=== PATIENT | male | born 1950 | race Caucasian/White ===

== ENCOUNTER 2022-02-07 13:35 | Emergency (ER) | payer MEDICARE, OTHER ==
[~2022-02-07] VITALS: Ht 170.2 cm; Wt 117.9 kg
[2022-02-07 13:37] VITALS: BP_SYST 152
[2022-02-07 15:34] LABS: BASOPHILS % (AUTO) 0.6 % (0.0-2.0); EOSINOPHILS # (AUTO) 0.4 K/uL (0.0-0.4); EOSINOPHILS % (AUTO) 4.9 % (0.0-4.0); HEMATOCRIT 41.2 % (36-54); LYMPHOCYTES # (AUTO) 1.5 K/uL (1.0-5.5); LYMPHOCYTES % (AUTO) 20.6 % (20.5-51.5); MEAN CORPUSCULAR HEMOGLOBIN 33 pg (27-31); MEAN CORPUSCULAR HGB CONC 34 % (32-36); MEAN CORPUSCULAR VOLUME 96 fL (79.0-98.0); MONOCYTES # (AUTO) 0.5 K/uL (0.0-1.0); MONOCYTES % (AUTO) 7.3 % (1.7-9.3); NEUTROPHILS # (AUTO) 4.8 K/uL (1.8-7.7); NEUTROPHILS % (AUTO) 66.6 % (40.0-70.0); PLATELET COUNT (AUTO) 196 K/uL (130-430); RED BLOOD CELL COUNT(AUTO) 4.29 MIL/uL (4.2-6.2); RED CELL DISTRIBUTION WIDTH 13.1 % (9.0-15.0); WHITE BLOOD COUNT (AUTO) 7.2 K/uL (4.8-10.8)
[2022-02-07] MEDS ORDERED: LIP80 PO (15:38)
[2022-02-07] MEDS ORDERED: CALC-823 PO (15:38)
[2022-02-07] MEDS ORDERED: DOCU283E7 (15:38)
[2022-02-07] MEDS ORDERED: VITD2000 PO (15:38)
[2022-02-07] MEDS ORDERED: CARB200T2 PO (15:38)
[2022-02-07] MEDS ORDERED: ASCO500T20 PO (15:38)
[2022-02-07] MEDS ORDERED: BACL20TA PO (15:38)
[2022-02-07] MEDS ORDERED: IPRA3AMP9 INH (15:38)
[2022-02-07] MEDS ORDERED: OXYB10TA4 PO (15:51)
[2022-02-07] MEDS ORDERED: GUAI-997 PO (15:51)
[2022-02-07] MEDS ORDERED: LOSA25TA3 PO (15:51)
[2022-02-07] MEDS ORDERED: NEU300 PO (15:51)
[2022-02-07] MEDS ORDERED: LORA10TA7 PO (15:51)
[2022-02-07] MEDS ORDERED: LEVO100V IV (15:51)
[2022-02-07] MEDS ORDERED: SYN75 PO (15:51)
[2022-02-07] MEDS ORDERED: MELA1TAB29 PO (15:51)
[2022-02-07] MEDS ORDERED: METO25TA3 PO (15:51)
[2022-02-07] MEDS ORDERED: METH1TAB35 PO (15:51)
[2022-02-07] MEDS ORDERED: FLUT16SP16 NS (15:51)
[2022-02-07] MEDS ORDERED: METF-381 PO (15:51)
[2022-02-07] MEDS ORDERED: NITR0.4T47 SL (15:51)
[2022-02-07 16:06] LABS: ANION GAP 4 (5-15); CALCIUM 8.3 mg/dL (8.4-11.0); CHLORIDE 103 mmol/L (98-107); CREATININE 0.74 mg/dL (0.55-1.30); GLUCOSE 135 mg/dL (70-99); POTASSIUM 3.8 mmol/L (3.5-5.1); SODIUM SERUM 138 mmol/L (136-145); UREA NITROGEN, BLOOD 12 mg/dL (8-21)
[2022-02-07 16:12] LABS: ALANINE AMINOTRANSFERASE 15 U/L (12-78); ALBUMIN 3.1 g/dL (3.4-4.8); ASPARTATE AMINOTRANSFERASE 16 U/L (10-37); LIPASE 64 U/L (73-393)
[2022-02-07 16:21] LABS: BILIRUBIN,URINE NEGATIVE (NEGATIVE); BLOOD, URINE NEGATIVE (NEGATIVE); COLOR,URINE YELLOW (YELLOW); GLUCOSE,URINE NEGATIVE (NEGATIVE); KETONES,URINE NEGATIVE (NEGATIVE); LEUKOCYTE ESTERASE ,URINE 1+ (NEGATIVE); NITRITE, URINE POSITIVE (NEGATIVE); PH,URINE 5.5 (5.0-8.0); PROTEIN URINE NEGATIVE (NEGATIVE); UROBILINOGEN,URINE 0.2 (0.2-1.0)
[2022-02-07 16:45] LABS: TOTAL BILIRUBIN 0.1 mg/dL (0.0-1.0)
[2022-02-07 16:59] LABS: CLARITY/URINE SLIGHTLY HAZY (CLEAR)
[2022-02-07 17:12] LABS: BACTERIA,URINE MODERATE /HPF (None Seen); MUCUS,URINE 1+ /LPF (None Seen); RBC,URINE 0-3 /HPF (0-3)
[2022-02-07] MEDS ORDERED: cefTRIAXone 1 GM in D5W 50 ML IV ONE (17:15)
[2022-02-07] MEDS ORDERED: NACL 0.9% 1,000 ML IV ONE (17:30)
[2022-02-07] MEDS ORDERED: cefTRIAXone 1 GM VIAL ONE (17:37)
[2022-02-07 19:04] LABS: INR 1.1 (0.80-1.20); PROTHROMBIN TIME 10.7 SECS (9.5-12.5)
[2022-02-07 22:45] VITALS: BP_SYST 146
== END 2022-02-07 22:44 | disposition short-term general hospital (02) ==
LOC: SED 13:35
DX: N39.0 Urinary tract infection, site not specified (principal); R53.1 Weakness; Z88.2 Allergy status to sulfonamides; Z20.822 Contact with and (suspected) exposure to COVID-19
CPT/HCPCS: 36415; 70450; 71045; 76376; 80053; 81000; 83605; 83690; 84484; 85025; 85610; 85730; 87040; 87086; 87426; 93005; 96365; 99285; J0696; J7060

== ENCOUNTER 2024-01-25 18:42 | Inpatient (IN) | payer MEDICARE, OTHER ==
[~2024-01-25] VITALS: Ht 185.4 cm; Wt 90.3 kg
[2024-01-25 18:42] VITALS: BP_SYST 126; PULSE 76; RESP 12; TEMP 96; O2SAT 91
[~2024-01-25 18:42] MED LIST: ASCO500T20 PO; BACL20TA PO; CALC-823 PO; CARB200T2 PO; DOCU283E7; FLUT16SP16 NS; IPRA3AMP9 INH; LEVO100V IV; LIP80 PO; LORA10TA7 PO; LOSA-412 PO; MELA1TAB29 PO; METF-381 PO; METH1TAB35 PO; METO25TA3 PO; NEU300 PO; NITR0.4T47 SL; OXYB10TA4 PO; SYN75 PO; VITD2000 PO; [UNRECOGNIZED DRUG - CODE] PO
[2024-01-25] MEDS ORDERED: ETOMIDATE 20 MG/ 10 ML VIAL (AMIDATE) ONE (18:59)
[2024-01-25] MEDS ORDERED: EPINEPHrine JECT 0.1 MG/ML SYR ONE (19:00)
[2024-01-25 19:47] LABS: HEMATOCRIT 49.2 % (36-54); HEMOGLOBIN 16.3 g/dL (14.0-18.0); MEAN CORPUSCULAR HEMOGLOBIN 33 pg (27-31); MEAN CORPUSCULAR HGB CONC 33 % (32-36); MEAN CORPUSCULAR VOLUME 98 fL (79.0-98.0); RED BLOOD CELL COUNT(AUTO) 5.01 MIL/uL (4.2-6.2); RED CELL DISTRIBUTION WIDTH 13.3 % (9.0-15.0); WHITE BLOOD COUNT (AUTO) 20.1 K/uL (4.8-10.8)
[2024-01-25 20:00] LABS: PLATELET COUNT (AUTO) 389 K/uL (130-430)
[2024-01-25 20:01] LABS: PROTHROMBIN TIME 10.5 SECS (9.5-12.5)
[2024-01-25 20:02] LABS: BAND % (MANUAL) 33 % (0-6); BASOPHILS % (MANUAL) 0 % (0-2); EOSINOPHILS % (MANUAL) 0 % (0-7); LYMPHOCYTES % (MANUAL) 5 % (20-46); MONOCYTES % (MANUAL) 3 % (0-11); PLATELET ESTIMATE ADEQUATE (ADEQUATE)
[2024-01-25 20:04] LABS: ALANINE AMINOTRANSFERASE 13 U/L (12-78); ALBUMIN 2.9 g/dL (3.4-4.8); ANION GAP 20 (5-15); ASPARTATE AMINOTRANSFERASE 17 U/L (10-37); BILIRUBIN,DIRECT 0.2 mg/dL (0.0-0.3); CALCIUM 9.5 mg/dL (8.4-11.0); CARBON DIOXIDE 16 mmol/L (23-29); CHLORIDE 103 mmol/L (98-107); CREATININE 1.72 mg/dL (0.55-1.30); GLUCOSE 235 mg/dL (74-106); POTASSIUM 4.6 mmol/L (3.5-5.1); SODIUM SERUM 139 mmol/L (136-145); TOTAL BILIRUBIN 0.5 mg/dL (0.0-1.0); TOTAL PROTEIN, SERUM 7.1 g/dL (6.4-8.3); UREA NITROGEN, BLOOD 17 mg/dL (8-21)
[2024-01-25] MEDS ORDERED: VANCOMYCIN HCL 1000 MG/VIAL IV ONE (20:11)
[2024-01-25] MEDS: ONDANSETRON HCL 4 MG/2 ML VIAL IVP ONE (20:14)
[2024-01-25] MEDS: metroNIDAZOLE 500 mg/NS 100 ML IV ONE (20:15)
[2024-01-25] MEDS: NACL 0.9% 2,000 ML IV ONE (20:15)
[2024-01-25] MEDS: VANCOMYCIN HCL 1,000 MG in NS 250 ML IV ONE (20:16)
[2024-01-25 20:30] LABS: BLOOD GAS BASE EXCESS -10.9 mmol/L (-3.0-3.0); BLOOD GAS HCO3 16.2 mmol/L (21.0-27.0); BLOOD GAS PCO2 40.4 mmHg (32.0-45.0); BLOOD GAS PH 7.221 (7.350-7.450); BLOOD GAS PO2 127.6 mmHg (75.0-100.0)
[2024-01-25] MEDS: SODIUM BICARBONATE 8.4% JECT 50 MEQ/50 ML SYRINGE IVP ONE (20:33)
[2024-01-25] MEDS: NACL 0.9% 1,000 ML IV ONE ×2 (21:08→22:14)
[2024-01-25] MEDS ORDERED: NYST15PO (21:55)
[2024-01-25] MEDS ORDERED: METF-379 PO (21:55)
[2024-01-25] MEDS ORDERED: GABA-529 PO (21:55)
[2024-01-25] MEDS: DIPHENHYDRAMINE INJ 50 MG/ML VIAL IVP ONE (22:10)
[2024-01-25] MEDS: cefTRIAXone 1 GM IVPB PREMIX 50 ML IV ONE (22:13)
[2024-01-25] MEDS ORDERED: DEXTROSE 50% JECT 50 ML DISP.SYRIN IVP PRN (22:15)
[2024-01-25 22:47] VITALS: BP_SYST 134; PULSE 69; RESP 16; TEMP 97.5; O2SAT 95
[2024-01-25 22:54] LABS: BILIRUBIN,URINE 3+ (NEGATIVE); BLOOD, URINE 3+ (NEGATIVE); CLARITY/URINE SL CLOUDY (CLEAR); GLUCOSE,URINE TRACE (NEGATIVE); KETONES,URINE 1+ (NEGATIVE); LEUKOCYTE ESTERASE ,URINE 1+ (NEGATIVE); NITRITE, URINE POSITIVE (NEGATIVE); PROTEIN URINE 3+ (NEGATIVE)
[2024-01-25 23:00] VITALS: PULSE 64
[2024-01-25 23:06] LABS: INFLUENZA TYPE A Negative (NEGATIVE); INFLUENZA TYPE B NEGATIVE (NEGATIVE)
[2024-01-25 23:07] LABS: BACTERIA,URINE RARE /HPF (None Seen)
[2024-01-25 23:08] LABS: HYALINE CASTS, URINE 0-10 /LPF (None Seen); MUCUS,URINE 1+ /LPF (None Seen)
[2024-01-25 23:14] VITALS: BP_SYST 134; PULSE 69; RESP 16; TEMP 97.5; O2SAT 96
[2024-01-25] MEDS: NOREPINEPHRINE 4 MG/4 ML VIAL IV ONE (23:36)
[2024-01-25] MEDS: NOREPINEPHRINE BITARTRATE 4 MG in D5W 246 ML IV PRN (23:48)
[2024-01-26] VITALS (76 sets, daily range): BP systolic 62–234; PULSE 57–112; RESP 16–27; TEMP 97.9–103.4; O2SAT 91–100
[2024-01-26] MEDS ORDERED: IPRATROPIUM/ALBUTEROL SULFATE 3 ML AMPUL.NEB (DUONEB) INH PRN
[2024-01-26] MEDS: SODIUM BICARBONATE 8.4% JECT 50 MEQ/50 ML SYRINGE IVP ONE (01:24)
[2024-01-26] MEDS: DOXYCYCLINE HYCLATE 100 MG in D5W 100 ML IV SCH (01:53)
[2024-01-26] MEDS: DOXYCYCLINE HYCLATE 100 MG VIAL IV ONE (01:54)
[2024-01-26] MEDS: NACL 0.9% 1,000 ML IV SCH (03:46)
[2024-01-26] MEDS: NOREPINEPHRINE BITARTRATE 8 MG in D5W 246 ML IV PRN (03:47)
[2024-01-26] MEDS: NOREPINEPHRINE 4 MG/4 ML VIAL IV ONE (03:48)
[2024-01-26 05:00] LABS: BASOPHILS % (AUTO) 0.1 % (0.0-2.0); HEMATOCRIT 49.4 % (36-54); HEMOGLOBIN 16.3 g/dL (14.0-18.0); LYMPHOCYTES # (AUTO) 1.4 K/uL (1.0-5.5); LYMPHOCYTES % (AUTO) 9.1 % (20.5-51.5); MEAN CORPUSCULAR HEMOGLOBIN 33 pg (27-31); MEAN CORPUSCULAR HGB CONC 33 % (32-36); MEAN CORPUSCULAR VOLUME 100 fL (79.0-98.0); MONOCYTES # (AUTO) 1.2 K/uL (0.0-1.0); MONOCYTES % (AUTO) 7.9 % (1.7-9.3); NEUTROPHILS # (AUTO) 12.8 K/uL (1.8-7.7); NEUTROPHILS % (AUTO) 82.9 % (40.0-70.0); PLATELET COUNT (AUTO) 315 K/uL (130-430); RED BLOOD CELL COUNT(AUTO) 4.93 MIL/uL (4.2-6.2); RED CELL DISTRIBUTION WIDTH 13.6 % (9.0-15.0); WHITE BLOOD COUNT (AUTO) 15.5 K/uL (4.8-10.8)
[2024-01-26 05:25] LABS: ALANINE AMINOTRANSFERASE 22 U/L (12-78); ALBUMIN 2.4 g/dL (3.4-4.8); ANION GAP 19 (5-15); ASPARTATE AMINOTRANSFERASE 84 U/L (10-37); CALCIUM 8.8 mg/dL (8.4-11.0); CARBON DIOXIDE 20 mmol/L (23-29); CHLORIDE 104 mmol/L (98-107); CREATININE 1.74 mg/dL (0.55-1.30); GLUCOSE 217 mg/dL (74-106); PHOSPHORUS 5.7 mg/dL (2.7-4.5); POTASSIUM 4.4 mmol/L (3.5-5.1); SODIUM SERUM 143 mmol/L (136-145); TOTAL BILIRUBIN 0.4 mg/dL (0.0-1.0); TOTAL PROTEIN, SERUM 6.5 g/dL (6.4-8.3); UREA NITROGEN, BLOOD 19 mg/dL (8-21)
[2024-01-26 06:33] LABS: BLOOD GAS PCO2 32.4 mmHg (32.0-45.0); BLOOD GAS PH 7.341 (7.350-7.450)
[2024-01-26 06:34] LABS: BLOOD GAS HCO3 17.1 mmol/L (21.0-27.0); BLOOD GAS PO2 138.5 mmHg (75.0-100.0)
[2024-01-26 06:35] LABS: ABG O2 SAT% ESTIMATE 98.6 % (94.0-100.0); BLOOD GAS BASE EXCESS -7.4 mmol/L (-3.0-3.0)
[2024-01-26] MEDS: metroNIDAZOLE 500 mg/NS 100 ML IV SCH (07:52)
[2024-01-26] MEDS: LEVOTHYROXINE SODIUM 0.075 MG TABLET PO SCH (07:58)
[2024-01-26] MEDS: ALBUMIN HUMAN 25% 50 ML IV SCH (07:58)
[2024-01-26] MEDS ORDERED: PHENYLEPHRINE HCL 100 MG in NS 240 ML IV PRN (08:15)
[2024-01-26] MEDS: INSULIN REGULAR, HUMAN 100 UNITS/ML, 3 ML VIAL (humuLIN R) SUBCUT PRN (08:33)
[2024-01-26] MEDS: NOREPINEPHRINE BITARTRATE 8 MG in D5W 242 ML IV PRN (08:38)
[2024-01-26] MEDS: ASCORBIC ACID 500 MG TABLET PO SCH (08:46)
[2024-01-26] MEDS: ATORVASTATIN 20 MG TABLET PO SCH (08:46)
[2024-01-26] MEDS: CHOLECALCIFEROL (VITAMIN D3) 2,000 UNIT TABLET PO SCH (08:47)
[2024-01-26] MEDS: MEROPENEM 500 MG in NS 50 ML IV ONE (11:07)
[2024-01-26] MEDS: VANCOMYCIN HCL ORAL SOLUTION 250 MG/5 ML, 80 ML PO SCH (11:08)
[2024-01-26] MEDS: ENOXAPARIN SODIUM 40 MG/0.4 ML SYRINGE SUBCUT SCH (11:15)
[2024-01-26] MEDS: ENOXAPARIN SODIUM 40 MG/0.4 ML SYRINGE SUBCUT ONE (11:32)
[2024-01-26] MEDS ORDERED: NOREPINEPHRINE BITARTRATE 32 MG in D5W 242 ML IV PRN (11:45)
[2024-01-26] MEDS: HYDROCORTISONE SOD SUCC 100 MG/2 ML VIAL IVP SCH ×2 (13:19→21:07)
[2024-01-26] MEDS: NOREPINEPHRINE BITARTRATE 32 MG in D5W 218 ML IV PRN (13:25)
[2024-01-26] MEDS ORDERED: *HEPARIN PER PHARMACY XX PRN (16:00)
[2024-01-26] MEDS: ACETAMINOPHEN 650 MG/20.3 ML UDC ONE (16:18)
[2024-01-26] MEDS ORDERED: ALBUMIN HUMAN 25% 200 ML IV ONE (16:30)
[2024-01-26] MEDS ORDERED: HEPARIN SODIUM,PORCINE 2000 UNITS/0.4 ML BOLUS IVP PRN (17:00)
[2024-01-26] MEDS ORDERED: HEPARIN SODIUM,PORCINE 3000 UNITS/0.6 ML BOLUS IVP PRN (17:00)
[2024-01-26] MEDS: HEPARIN SODIUM,PORCINE 5,000 UNITS/ML VIAL IV ONE (17:53)
[2024-01-26] MEDS: HEPARIN 25,000 UNITS in 250 ML PREMIX IV PRN (17:56)
[2024-01-26] MEDS: HYDROCORTISONE SOD SUCC 100 MG/2 ML VIAL IVP ONE (17:57)
[2024-01-26 19:01] LABS: ANION GAP 13 (5-15); CARBON DIOXIDE 19 mmol/L (23-29); CHLORIDE 105 mmol/L (98-107); CREATININE 2.58 mg/dL (0.55-1.30); GLUCOSE 286 mg/dL (74-106); POTASSIUM 3.8 mmol/L (3.5-5.1); SODIUM SERUM 137 mmol/L (136-145); UREA NITROGEN, BLOOD 31 mg/dL (8-21)
[2024-01-26] MEDS: MEROPENEM 500 MG in NS 50 ML IV SCH (20:39)
[2024-01-27] VITALS (37 sets, daily range): BP systolic 105–158; PULSE 71–99; RESP 13–23; TEMP 98.6–102.5; O2SAT 95–99
[2024-01-27] MEDS: ACETAMINOPHEN 650 MG/20.3 ML UDC PO PRN (04:45)
[2024-01-27 06:06] LABS: BASOPHILS # (AUTO) 0.1 K/uL (0.0-0.2); BASOPHILS % (AUTO) 0.3 % (0.0-2.0); EOSINOPHILS % (AUTO) 0.1 % (0.0-4.0); HEMATOCRIT 36.8 % (36-54); HEMOGLOBIN 12.5 g/dL (14.0-18.0); LYMPHOCYTES # (AUTO) 1.7 K/uL (1.0-5.5); LYMPHOCYTES % (AUTO) 8.2 % (20.5-51.5); MEAN CORPUSCULAR HEMOGLOBIN 33 pg (27-31); MEAN CORPUSCULAR HGB CONC 34 % (32-36); MEAN CORPUSCULAR VOLUME 98 fL (79.0-98.0); MONOCYTES # (AUTO) 1.7 K/uL (0.0-1.0); NEUTROPHILS # (AUTO) 17.3 K/uL (1.8-7.7); NEUTROPHILS % (AUTO) 83.4 % (40.0-70.0); PLATELET COUNT (AUTO) 221 K/uL (130-430); RED BLOOD CELL COUNT(AUTO) 3.75 MIL/uL (4.2-6.2); RED CELL DISTRIBUTION WIDTH 13.5 % (9.0-15.0)
[2024-01-27 06:49] LABS: ALANINE AMINOTRANSFERASE 22 U/L (12-78); ALBUMIN 2.2 g/dL (3.4-4.8); ANION GAP 17 (5-15); ASPARTATE AMINOTRANSFERASE 91 U/L (10-37); CALCIUM 7.2 mg/dL (8.4-11.0); CARBON DIOXIDE 19 mmol/L (23-29); CHLORIDE 107 mmol/L (98-107); CHOLESTEROL 51 mg/dL (<200); CREATININE 2.72 mg/dL (0.55-1.30); GLUCOSE 228 mg/dL (74-106); HDL CHOLESTEROL 39 mg/dL (>45); POTASSIUM 3.8 mmol/L (3.5-5.1); SODIUM SERUM 143 mmol/L (136-145); THYROID STIMULATING HORMONE 0.75 uIu/mL (0.34-4.82); TOTAL BILIRUBIN 0.4 mg/dL (0.0-1.0); TOTAL PROTEIN, SERUM 5.2 g/dL (6.4-8.3); TRIGLYCERIDES 24 mg/dL (30-150); UREA NITROGEN, BLOOD 35 mg/dL (8-21)
[2024-01-27 08:57] LABS: WHITE BLOOD COUNT (AUTO) 20.7 K/uL (4.8-10.8)
[2024-01-27 09:30] LABS: ABG O2 SAT% ESTIMATE 99.1 % (94.0-100.0); BLOOD GAS BASE EXCESS -1.6 mmol/L (-3.0-3.0); BLOOD GAS HCO3 19.2 mmol/L (21.0-27.0); BLOOD GAS PO2 140.5 mmHg (75.0-100.0)
[2024-01-27 09:57] LABS: BLOOD GAS PH 7.521 (7.350-7.450)
[2024-01-27 09:58] LABS: ALLEN'S TEST POSITIVE (P)
[2024-01-27] MEDS: *LOVENOX0.75MG/KG Q12H/PHARMACY XX ONE (14:00)
[2024-01-27] MEDS: FUROSEMIDE 20 MG/2 ML VIAL IVP ONE (16:06)
[2024-01-27] MEDS: PANTOPRAZOLE SODIUM 40 MG/VIAL (PROTONIX) IVP ONE (16:07)
[2024-01-27] MEDS: ENOXAPARIN SODIUM 80 MG/0.8 ML SYRINGE SUBCUT ONE (16:13)
[2024-01-27] MEDS: PANTOPRAZOLE SODIUM 40 MG/VIAL (PROTONIX) IVP SCH (22:16)
[2024-01-28] VITALS (27 sets, daily range): BP systolic 98–168; PULSE 73–103; RESP 18–21; TEMP 99–100.2; O2SAT 95–100
[2024-01-28 05:26] LABS: BASOPHILS # (AUTO) 0.1 K/uL (0.0-0.2); BASOPHILS % (AUTO) 0.5 % (0.0-2.0); EOSINOPHILS # (AUTO) 0.2 K/uL (0.0-0.4); EOSINOPHILS % (AUTO) 1.2 % (0.0-4.0); HEMATOCRIT 34.3 % (36-54); HEMOGLOBIN 11.8 g/dL (14.0-18.0); LYMPHOCYTES % (AUTO) 5.2 % (20.5-51.5); MEAN CORPUSCULAR HEMOGLOBIN 33 pg (27-31); MEAN CORPUSCULAR HGB CONC 34 % (32-36); MEAN CORPUSCULAR VOLUME 98 fL (79.0-98.0); MONOCYTES # (AUTO) 1.3 K/uL (0.0-1.0); MONOCYTES % (AUTO) 6.7 % (1.7-9.3); NEUTROPHILS # (AUTO) 16.7 K/uL (1.8-7.7); NEUTROPHILS % (AUTO) 86.4 % (40.0-70.0); PLATELET COUNT (AUTO) 181 K/uL (130-430); RED BLOOD CELL COUNT(AUTO) 3.52 MIL/uL (4.2-6.2); RED CELL DISTRIBUTION WIDTH 13.8 % (9.0-15.0); WHITE BLOOD COUNT (AUTO) 19.4 K/uL (4.8-10.8)
[2024-01-28 06:08] LABS: ALANINE AMINOTRANSFERASE 15 U/L (12-78); ALBUMIN 1.8 g/dL (3.4-4.8); ANION GAP 18 (5-15); ASPARTATE AMINOTRANSFERASE 70 U/L (10-37); CARBON DIOXIDE 16 mmol/L (23-29); CHLORIDE 110 mmol/L (98-107); CREATININE 4.37 mg/dL (0.55-1.30); GLUCOSE 182 mg/dL (74-106); PHOSPHORUS 3.5 mg/dL (2.7-4.5); POTASSIUM 3.2 mmol/L (3.5-5.1); SODIUM SERUM 144 mmol/L (136-145); TOTAL BILIRUBIN 0.4 mg/dL (0.0-1.0); UREA NITROGEN, BLOOD 50 mg/dL (8-21)
[2024-01-28 06:13] LABS: CALCIUM 6.7 mg/dL (8.4-11.0)
[2024-01-28] MEDS ORDERED: BALSAM PERU/CASTOR OIL 56.7 GM OINT...G. TP SCH (09:00)
[2024-01-28] MEDS: BALSAM PERU/CASTOR OIL 56.7 GM OINT...G. TP SCH (09:11)
[2024-01-28] MEDS: ALBUMIN HUMAN 25% 50 ML IV SCH (09:17)
[2024-01-28] MEDS: ENOXAPARIN SODIUM 80 MG/0.8 ML SYRINGE SUBCUT SCH (09:24)
[2024-01-28 09:37] LABS: BLOOD GAS PCO2 28.3 mmHg (32.0-45.0); BLOOD GAS PH 7.408 (7.350-7.450); BLOOD GAS PO2 155.5 mmHg (75.0-100.0)
[2024-01-28 09:50] LABS: BLOOD GAS BASE EXCESS -5.6 mmol/L (-3.0-3.0); BLOOD GAS HCO3 17.5 mmol/L (21.0-27.0)
[2024-01-28 09:51] LABS: ALLEN'S TEST POSITIVE (P)
[2024-01-28] MEDS ORDERED: FUROSEMIDE 40 MG/4 ML VIAL IVP ONE (17:00)
[2024-01-28] MEDS: FUROSEMIDE 40 MG/4 ML VIAL ONE (17:09)
[2024-01-28] MEDS: FUROSEMIDE 40 MG/4 ML VIAL IVP ONE (17:09)
[2024-01-28] MEDS: POTASSIUM CHLORIDE 20 MEQ/PKT PACKET PO ONE (17:11)
[2024-01-28] MEDS ORDERED: levETIRAcetam 500 MG in NS 100 ML IV SCH (21:00)
[2024-01-29] MEDS ORDERED: FUROSEMIDE 40 MG/4 ML VIAL IVP SCH (09:00)
[2024-01-29] MEDS ORDERED: POTASSIUM CHLORIDE 20 MEQ/PKT PACKET PO SCH (09:00)
== END 2024-01-28 19:32 | disposition short-term general hospital (02) | DRG 871 ==
LOC: SED 18:42 → SIC 21:31
PROVIDERS: ADMIT Internal Medicine; ATTEND Internal Medicine
PROC: 02HV33Z Insertion of Infusion Device into Superior Vena Cava, Percutaneous Approach (ICD-10-PCS; 2024-01-25)
PROC: 5A1945Z Respiratory Ventilation, 24-96 Consecutive Hours (ICD-10-PCS; 2024-01-25)
PROC: 0BH17EZ Insertion of Endotracheal Airway into Trachea, Via Natural or Artificial Opening (ICD-10-PCS; 2024-01-25)
PROC: 06HY33Z Insertion of Infusion Device into Lower Vein, Percutaneous Approach (ICD-10-PCS; 2024-01-25)
PROC: 4A00X4Z Measurement of Central Nervous Electrical Activity, External Approach (ICD-10-PCS; principal; 2024-01-28)
DX: A41.9 Sepsis, unspecified organism (principal); E43 Unspecified severe protein-calorie malnutrition; G82.50 Quadriplegia, unspecified; J69.0 Pneumonitis due to inhalation of food and vomit; R65.21 Severe sepsis with septic shock; G93.41 Metabolic encephalopathy; J96.01 Acute respiratory failure with hypoxia; N17.0 Acute kidney failure with tubular necrosis; E87.20 Acidosis, unspecified; N39.0 Urinary tract infection, site not specified; Z20.822 Contact with and (suspected) exposure to COVID-19; E03.9 Hypothyroidism, unspecified; E11.9 Type 2 diabetes mellitus without complications; E78.5 Hyperlipidemia, unspecified; K52.9 Noninfective gastroenteritis and colitis, unspecified; G35 Multiple sclerosis; I10 Essential (primary) hypertension; I25.10 Atherosclerotic heart disease of native coronary artery without angina pectoris; R56.9 Unspecified convulsions; Z96.641 Presence of right artificial hip joint; Z74.01 Bed confinement status; Z95.5 Presence of coronary angioplasty implant and graft; Z99.3 Dependence on wheelchair; Z88.2 Allergy status to sulfonamides; Z88.8 Allergy status to other drugs, medicaments and biological substances; Z79.84 Long term (current) use of oral hypoglycemic drugs; Z79.899 Other long term (current) drug therapy; Z79.51 Long term (current) use of inhaled steroids; Z68.26 Body mass index [BMI] 26.0-26.9, adult; N31.9 Neuromuscular dysfunction of bladder, unspecified; B95.2 Enterococcus as the cause of diseases classified elsewhere
CPT/HCPCS: 36415; 36600; 70450-TC; 71045; 74018; 80048; 80053; 80061; 80076; 81000; 81001; 81015; 82533; 82803; 82948; 83605; 83735; 83880; 84100; 84443; 84484; 85007; 85025; 85027; 85610; 85730; 87040; 87045-TC; 87046; 87070; 87081; 87086; 87186; 87205; 87230; 93005; 93306; 93923; 93970; 94002; 94003; 94070; 94640; 95816; 99291; 99292; C9113; J0171; J0330; J0696; J1200; J1644; J1650; J1720; J1815; J1940; J1953; J2185; J2370; J2405; J3370; J3490; J7050; J7060; P9046